=== PATIENT | female | born 1955 | race African-American/Black ===

== ENCOUNTER 2023-07-10 09:53 | Outpatient (CLI) | payer MEDICARE | END 2023-07-10 09:54 | disposition home or self-care (01) | LOC: BICMAMMO 09:53 | PROVIDERS: ATTEND Family Medicine | DX: Z12.31 Encounter for screening mammogram for malignant neoplasm of breast (principal); Z91.89 Other specified personal risk factors, not elsewhere classified | CPT/HCPCS: 77063; 77067 ==

== ENCOUNTER 2023-08-23 08:18 | Outpatient (CLI) | payer MEDICARE | END 2023-08-23 08:19 | disposition home or self-care (01) | LOC: BICRAD 08:18 | PROVIDERS: ATTEND Family Medicine | DX: M25.571 Pain in right ankle and joints of right foot (principal); M25.572 Pain in left ankle and joints of left foot; M77.31 Calcaneal spur, right foot; M76.61 Achilles tendinitis, right leg | CPT/HCPCS: 36415; 80053; 83036; 84550; 86140 ==

== ENCOUNTER 2025-06-19 20:22 | Emergency (ER) | payer OTHER ==
[2025-06-19] MEDS ORDERED: Ketorolac Tromethamine 30 MG (1 mL) VIAL ONE (21:06)
[2025-06-19] MEDS ORDERED: Acetaminophen 325 MG TAB ONE (21:59)
== END 2025-06-19 23:58 ==
LOC: ERS 20:22
DX: M79.605 Pain in left leg (principal); I10 Essential (primary) hypertension; E11.9 Type 2 diabetes mellitus without complications; E78.5 Hyperlipidemia, unspecified; Z79.84 Long term (current) use of oral hypoglycemic drugs; Z79.899 Other long term (current) drug therapy; W01.0XXA Fall on same level from slipping, tripping and stumbling without subsequent striking against object, initial encounter
CPT/HCPCS: 72192; 96372; J1885; J3010